=== PATIENT | male | born 1995 | race Caucasian/White ===

== ENCOUNTER 2018-12-07 07:54 | Emergency (ER) | payer MEDICAID ==
[~2018-12-07] VITALS: Ht 177.8 cm; Wt 59.5 kg
--- NOTE | 2018-12-07 08:29 | NUR ---
PT CURRENTLY BEING TREATED INPATIENT AT [facility] FOR SI, DENIES CURRENT THOUGHTS OR PLAN BUT IS SCREENED BEING MODERATE HYDRAULIC SPINNER DUE TO THOUGHTS IN LAST 3 MONTHS. 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 ORDER ENTERED BY PROVIDER FOR NO PRECAUTIONS. PT IN ROOM BY NURSES/DOCTORS STATION, ABLE TO VISUALIZE PT FROM DESK.
[2018-12-07 08:35] LABS: BASOPHILS # (AUTO) 0.03 x10^3/uL (0-0.1); BASOPHILS % (AUTO) 1 % (0-1); EOSINOPHILS % (AUTO) 2 % (1-7); LYMPHOCYTES # (AUTO) 2.53 x10^3/uL (1-3.4); LYMPHOCYTES % (AUTO) 41 % (22-44); MD NO; MEAN CORPUSCULAR HEMOGLOBIN 31.5 pg (27.5-34.5); MEAN CORPUSCULAR HGB CONC 34.2 g/dL (33.2-36.2); MEAN CORPUSCULAR VOLUME 92.2 fL (81-97); MEAN PLATELET VOLUME 7.8 fL (7.4-10.4); MONOCYTES # (AUTO) 0.51 x10^3/uL (0.2-0.8); MONOCYTES % (AUTO) 8 % (2-9); NEUTROPHILS # (AUTO) 3.06 x10^3/uL (1.8-6.8); NEUTROPHILS % (AUTO) 49 % (42-75); PLATELET COUNT 196 x10^3/uL (130-400); RED BLOOD COUNT 5.57 x10^6/uL (4.38-5.82); RED CELL DISTRIBUTION WIDTH 13.5 % (9.4-14.8)
--- NOTE | 2018-12-07 08:46 | NUR ---
PT SLEEPING IN [facility], NO NEEDS AT THIS TIME. CALL [facility] WITHIN REACH
[2018-12-07 08:50] LABS: ALBUMIN 3.8 g/dL (3.4-5.0); ANION GAP 5 mmol/L (5-15); CALCIUM 8.9 mg/dL (8.5-10.1); CHLORIDE 107 mmol/L (98-107); CREATININE 1.05 mg/dL (0.7-1.3)
--- NOTE | 2018-12-07 09:24 | NUR ---
I AM ASSUMING CARE OF THIS PATIENT FROM [facility] (YARELY) AT THIS TIME. SBAR REPORT WAS EXCHANGED AT THE BEDSIDE.
[2018-12-07 09:40] VITALS: BP 105/58
[2019-01-03] MEDS ORDERED: [UNRECOGNIZED DRUG - REMARK] PO (14:59)
[2019-01-03] MEDS ORDERED: FLUO10CA7 PO (14:59)
== END 2018-12-07 10:01 | disposition home or self-care (01) ==
LOC: ED 09:00
DX: R56.9 Unspecified convulsions (principal)
CPT/HCPCS: 36415; 70450; 80048; 82040; 85025; 93005; 99284

== ENCOUNTER 2019-03-01 01:27 | Emergency (ER) | payer MEDICAID ==
[~2019-03-01] VITALS: Ht 177.8 cm; Wt 60.0 kg
[~2019-03-01 01:27] MED LIST: FLUO10CA7 PO; [UNRECOGNIZED DRUG - REMARK] PO
[2019-03-01 01:30] VITALS: BP 132/84
[2019-03-01] MEDS ORDERED: FLUOXETINE 10 MG CAP ONE (01:46)
[2019-03-01] MEDS ORDERED: FLUOXETINE 10 MG CAP PO ONE (02:00)
== END 2019-03-01 02:04 | disposition home or self-care (01) ==
LOC: ED 01:55
DX: F32.9 Major depressive disorder, single episode, unspecified (principal); R45.851 Suicidal ideations; Z76.0 Encounter for issue of repeat prescription
CPT/HCPCS: 99283

== ENCOUNTER 2019-03-30 21:39 | Emergency (ER) | payer MEDICAID ==
[~2019-03-30] VITALS: Ht 175.3 cm; Wt 72.0 kg
[2019-03-30 21:56] VITALS: BP 118/58
[2019-03-30 22:01] LABS: BASOPHILS # (AUTO) 0.02 x10^3/uL (0-0.1); BASOPHILS % (AUTO) 0 % (0-1); EOSINOPHILS # (AUTO) 0.05 x10^3/uL (0-0.4); EOSINOPHILS % (AUTO) 1 % (1-7); LYMPHOCYTES # (AUTO) 1.91 x10^3/uL (1-3.4); LYMPHOCYTES % (AUTO) 27 % (22-44); MD NO; MEAN CORPUSCULAR HEMOGLOBIN 31.4 pg (27.5-34.5); MEAN CORPUSCULAR HGB CONC 34.2 g/dL (33.2-36.2); MEAN CORPUSCULAR VOLUME 91.9 fL (81-97); MEAN PLATELET VOLUME 8.1 fL (7.4-10.4); MONOCYTES # (AUTO) 0.71 x10^3/uL (0.2-0.8); MONOCYTES % (AUTO) 10 % (2-9); NEUTROPHILS # (AUTO) 4.52 x10^3/uL (1.8-6.8); NEUTROPHILS % (AUTO) 63 % (42-75); PLATELET COUNT 207 x10^3/uL (130-400); RED BLOOD COUNT 5.54 x10^6/uL (4.38-5.82); RED CELL DISTRIBUTION WIDTH 13.6 % (9.4-14.8)
[2019-03-30] MEDS ORDERED: DIVA-59 PO (22:03)
--- NOTE | 2019-03-30 22:04 | NUR ---
THIS IS A 23 YO MALE BIB [facility] FOR SI COMMENTS MADE AT [facility]. PATIENT STATES HE HAS FELT SUICIDAL FOR THE PAST COUPLE DAYS, BUT WORSENING TODAY, STATES "MY PLAN WAS TO STRANGLE MYSELF". PT HAS HX PTSD, ANXIETY/DEPRESSION, ADHD, AND SEIZURES, AND "POSSIBLE AUSTISM, BUT I HAVEN'T DONE ANY TESTING". PATIENT CALM AND COOPERATIVE, UNDRESSED AND PUT HOSPITAL GOWN ON. 2 BELONGINGS BAGS FULL WITH PATIENT'S BELONGINGS AND PLACED IN LOCKED STORAGE. VSS, CHELSEY, SITTER AT DOOR. UA COLLECTED AND SENT TO LAB.
[2019-03-30 22:10] LABS: ALBUMIN 4.2 g/dL (3.4-5.0); ANION GAP 5 mmol/L (5-15); CALCIUM 9.2 mg/dL (8.5-10.1); CHLORIDE 103 mmol/L (98-107); CREATININE 1.06 mg/dL (0.7-1.3)
[2019-03-30 22:14] LABS: SALICYLATE LEVEL < 1.7 mg/dL (2.8-20.0)
[2019-03-30] MEDS ORDERED: DEXAMETHASONE 4 MG TABLET ONE (22:19)
[2019-03-30 22:22] LABS: AMPHETAMINE SCREEN, URINE Negative (Negative); BARBITURATE SCREEN, URINE Negative (Negative); BENZODIAZEPINE SCREEN, URINE Negative (Negative); CANNABINOID SCREEN, URINE Negative (Negative); COCAINE SCREEN, URINE Negative (Negative); METHADONE SCREEN, URINE Negative (Negative); OPIATE SCREEN, URINE Negative (Negative)
--- NOTE | 2019-03-30 23:06 | NUR ---
PATIENT RESTING ON GURNEY, RESPIRATIONS EVEN AND UNLABORED, NAD. SITTER AT DOOR.
--- NOTE | 2019-03-30 23:47 | NUR ---
PATIENT RESTING ON GURNEY, RESPIRATIONS EVEN AND UNLABORED, NAD. SITTER AT DOOR.
--- NOTE | 2019-03-31 00:19 | NUR ---
REPORT GIVEN TO YARELY BRIDGES OF [facility]
--- NOTE | 2019-03-31 00:29 | NUR ---
PATIENT TRANSFERRED TO [facility] IN WHEELCHAIR WITH TWO TECHS WITH 2 OUT OF 2 BELONGINGS BAGS.
== END 2019-03-31 00:31 ==
LOC: ED 23:13
DX: R45.851 Suicidal ideations (principal); F32.9 Major depressive disorder, single episode, unspecified; G40.909 Epilepsy, unspecified, not intractable, without status epilepticus
CPT/HCPCS: 36415; 80048; 80307; 82040; 85025; 99285

== ENCOUNTER 2019-03-31 00:12 | Inpatient (IN) | payer MEDICAID ==
[~2019-03-31] VITALS: Ht 175.3 cm; Wt 69.6 kg
[~2019-03-31 00:12] MED LIST changes: +DIVA-59 PO
[2019-03-31] MEDS ORDERED: POLYETHYLENE GLYCOL 17 GM PACKET PO PRN (00:30)
[2019-03-31] MEDS ORDERED: ACETAMINOPHEN 325 MG TABLET PO PRN (00:30)
[2019-03-31] MEDS ORDERED: DOCUSATE 100 MG CAPSULE PO PRN (00:30)
[2019-03-31] MEDS ORDERED: BISACODYL 10 MG SUPP PR PRN (00:30)
[2019-03-31 00:49] VITALS: BP 105/68
[2019-03-31 01:15] VITALS: BP 105/68
[2019-03-31 01:52] LABS: MICROSCOPIC NOT IND
[2019-03-31 01:55] LABS: CULTURE INDICATED? NO
[2019-03-31] MEDS ORDERED: FLU VACC QS2019-20 36MOS UP/PF 0.5 ML IM-VACC ONE (03:00)
[2019-03-31 03:36] LABS: ALANINE AMINOTRANSFERASE 30 U/L (12-78); ALBUMIN 4.3 g/dL (3.4-5.0); ANION GAP 7 mmol/L (5-15); CALCIUM 9.3 mg/dL (8.5-10.1); CHLORIDE 103 mmol/L (98-107); CREATININE 1.09 mg/dL (0.7-1.3)
[2019-03-31 03:39] LABS: ALKALINE PHOSPHATASE 85 U/L (45-117); BILIRUBIN,TOTAL 0.3 mg/dL (0.2-1.0); TOTAL PROTEIN 7.8 g/dL (6.4-8.2)
[2019-03-31 07:12] VITALS: BP 100/62
[2019-03-31 12:47] LABS: CHOL/HDL RATIO 4.5; FREE T4 (FREE THYROXINE) 0.61 ng/dL (0.76-1.46); LDL/HDL RATIO 2.6 (0.5-3.0)
[2019-03-31] MEDS: FLUOXETINE HCL 20 MG CAPSULE PO SCH (16:38)
[2019-03-31 19:22] VITALS: BP 110/70
[2019-03-31] MEDS: DIVALPROEX 500 MG TABLET.DR PO SCH (20:05)
[2019-04-01 07:15] VITALS: BP 106/64
[2019-04-01] MEDS: FLUOXETINE HCL 20 MG CAPSULE PO SCH (08:20)
[2019-04-01 19:43] VITALS: BP 96/61
[2019-04-01] MEDS: DIVALPROEX 500 MG TABLET.DR PO SCH (20:11)
[2019-04-01] MEDS ORDERED: TRAZODONE 100MG TABLET ONE (20:15)
[2019-04-02 07:25] VITALS: BP 103/60
[2019-04-02] MEDS: FLUOXETINE HCL 20 MG CAPSULE PO SCH (08:26)
[2019-04-02 19:50] VITALS: BP 94/55
[2019-04-02] MEDS: DIVALPROEX 500 MG TABLET.DR PO SCH (20:28)
[2019-04-03 07:34] VITALS: BP 102/60
[2019-04-03] MEDS: FLUOXETINE HCL 20 MG CAPSULE PO SCH (08:22)
[2019-04-03 19:15] VITALS: BP 114/64
[2019-04-03] MEDS: DIVALPROEX 500 MG TABLET.DR PO SCH (20:04)
[2019-04-04 07:05] VITALS: BP 101/58
[2019-04-04] MEDS: FLUOXETINE HCL 20 MG CAPSULE PO SCH (09:10)
[2019-04-04] MEDS ORDERED: DIVA-61 PO (16:13)
[2019-04-04] MEDS ORDERED: FLUO20CA8 PO (16:13)
[2019-04-04 19:15] VITALS: BP 120/68
[2019-04-04] MEDS: DIVALPROEX 500 MG TABLET.DR PO SCH (20:15)
[2019-04-05 07:38] VITALS: BP 94/52
[2019-04-05] MEDS: FLUOXETINE HCL 20 MG CAPSULE PO SCH (08:17)
== END 2019-04-05 09:06 | disposition home or self-care (01) | DRG 885 ==
LOC: 3E 00:31
PROVIDERS: ADMIT Psychiatry & Neurology Psychosomatic Medicine; ATTEND Psychiatry & Neurology Psychosomatic Medicine
DX: F33.2 Major depressive disorder, recurrent severe without psychotic features (principal); R45.851 Suicidal ideations; Z79.899 Other long term (current) drug therapy; F43.10 Post-traumatic stress disorder, unspecified
CPT/HCPCS: 36415; 71045; 80053; 80061; 81003; 84439; 84443; 90686; 93005

== ENCOUNTER 2019-04-22 09:57 | Emergency (ER) | payer MEDICAID ==
[~2019-04-22] VITALS: Ht 177.8 cm; Wt 59.5 kg
[~2019-04-22 09:57] MED LIST changes: +DIVA-61 PO; +FLUO20CA8 PO
[2019-04-22 10:01] VITALS: BP 117/73
--- NOTE | 2019-04-22 10:16 | NUR ---
pt BIB [facility] from [facility]. pt attempted SI with a gorcery bag/stranglation. pt chagned into a hospital gown. Provider at bedside. All personal belongs bag in 1 of 1 bags. Legal hold intiated. pt verbalized understanding of current POC.
[2019-04-22 10:33] LABS: BASOPHILS # (AUTO) 0.01 x10^3/uL (0-0.1); BASOPHILS % (AUTO) 0 % (0-1); EOSINOPHILS # (AUTO) 0.06 x10^3/uL (0-0.4); EOSINOPHILS % (AUTO) 1 % (1-7); LYMPHOCYTES # (AUTO) 1.95 x10^3/uL (1-3.4); LYMPHOCYTES % (AUTO) 35 % (22-44); MD NO; MEAN CORPUSCULAR HEMOGLOBIN 31.8 pg (27.5-34.5); MEAN CORPUSCULAR HGB CONC 34.1 g/dL (33.2-36.2); MEAN CORPUSCULAR VOLUME 93.4 fL (81-97); MEAN PLATELET VOLUME 8.3 fL (7.4-10.4); MONOCYTES # (AUTO) 0.64 x10^3/uL (0.2-0.8); MONOCYTES % (AUTO) 11 % (2-9); NEUTROPHILS # (AUTO) 2.99 x10^3/uL (1.8-6.8); NEUTROPHILS % (AUTO) 53 % (42-75); PLATELET COUNT 213 x10^3/uL (130-400); RED BLOOD COUNT 5.45 x10^6/uL (4.38-5.82); RED CELL DISTRIBUTION WIDTH 13.8 % (9.4-14.8)
--- NOTE | 2019-04-22 10:35 | NUR ---
MEAL TRAY ORDERED AT THIS TIME.
--- NOTE | 2019-04-22 10:41 | NUR ---
meal tray provided at this time.
[2019-04-22 10:42] LABS: ALBUMIN 3.8 g/dL (3.4-5.0); ANION GAP 7 mmol/L (5-15); CALCIUM 8.6 mg/dL (8.5-10.1); CHLORIDE 106 mmol/L (98-107)
[2019-04-22 10:44] LABS: CREATININE 1.16 mg/dL (0.7-1.3); SALICYLATE LEVEL < 1.7 mg/dL (2.8-20.0)
--- NOTE | 2019-04-22 10:51 | NUR ---
pt moved to room 2. pt amb to room 2 with steady gait.
--- NOTE | 2019-04-22 11:06 | NUR ---
REPORT FROM ANKIT PRITCHETT PATIENT MOVED TO ER ROOM 2 SITTER WITHIN DIRECT EYELINE ROOM SECURED WITH PSYCHIATRIC PRECAUTIONS
--- NOTE | 2019-04-22 11:08 | NUR ---
PATIENT DENIES SUICIDE IDEATION AT THIS TIME. REPORTS "I FREAKED OUT THIS AM. I THINK IT WAS BECAUSE I HAVN'T TAKEN MY DEPRESSION MEDICINES IN A FEW WEEK BECAUSE MY WORK SCHEDULE DOES NOT MATCH WITH WHEN THE [facility] PASSES MEDS (THEY ONLY PASS MEDS AT 7AM AND 7PM AND I WORK FROM 6PM TO 430AM) REMINDED OF NEED FOR URINE SAMPLE RHIANNON-PROVIDED WITH PO FLUIDS TO EXPEDITE
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
[2019-04-22 12:24] LABS: AMPHETAMINE SCREEN, URINE Negative (Negative); BARBITURATE SCREEN, URINE Negative (Negative); BENZODIAZEPINE SCREEN, URINE Negative (Negative); CANNABINOID SCREEN, URINE Negative (Negative); COCAINE SCREEN, URINE Negative (Negative); METHADONE SCREEN, URINE Negative (Negative); OPIATE SCREEN, URINE Negative (Negative)
[2019-04-26] MEDS ORDERED: FLUO20CA8 PO (16:00)
== END 2019-04-22 15:28 ==
LOC: ED 10:32
DX: T14.91XA Suicide attempt, initial encounter (principal); F32.9 Major depressive disorder, single episode, unspecified; Z91.14 Patient's other noncompliance with medication regimen; X83.8XXA Intentional self-harm by other specified means, initial encounter; Y93.89 Activity, other specified; Y92.89 Other specified places as the place of occurrence of the external cause; Y99.8 Other external cause status
CPT/HCPCS: 36415; 80048; 80307; 82040; 85025; 99283; 99284

== ENCOUNTER 2019-04-22 14:48 | Inpatient (IN) | payer MEDICAID ==
[~2019-04-22] VITALS: Ht 177.8 cm; Wt 46.9 kg
[~2019-04-22 14:48] MED LIST changes: +FLUO10CA14 PO; -FLUO10CA7 PO; +FLUO20CA23 PO; -FLUO20CA8 PO
[2019-04-22] MEDS ORDERED: DOCUSATE 100 MG CAPSULE PO PRN ×2 (15:00→18:30)
[2019-04-22] MEDS ORDERED: ACETAMINOPHEN 325 MG TABLET PO PRN ×2 (15:00→18:30)
[2019-04-22] MEDS ORDERED: ONDANSETRON ODT 4 MG PO PRN ×2 (15:00→18:30)
[2019-04-22] MEDS ORDERED: POLYETHYLENE GLYCOL 17 GM PACKET PO PRN ×2 (15:00→18:30)
[2019-04-22] MEDS ORDERED: BISACODYL 10 MG SUPP PR PRN ×2 (15:00→18:30)
[2019-04-22] MEDS ORDERED: PLEASE ENTER HEIGHT AND WEIGHT MC SCH (16:00)
[2019-04-22 16:17] VITALS: BP 99/64
[2019-04-22 16:53] VITALS: BP 99/64
[2019-04-22] MEDS: DIVALPROEX 500 MG TABLET.DR PO SCH (20:40)
[2019-04-22] MEDS ORDERED: DIVALPROEX 500 MG TABLET.DR PO SCH (21:00)
[2019-04-22 21:31] VITALS: BP 106/62
[2019-04-23 07:33] VITALS: BP 106/66
[2019-04-23] MEDS: FLUOXETINE HCL 20 MG CAPSULE PO SCH (08:38)
[2019-04-23] MEDS: DIVALPROEX 250 MG TABLET.DR PO SCH (08:38)
[2019-04-23] MEDS ORDERED: FLUOXETINE HCL 20 MG CAPSULE PO SCH (09:00)
[2019-04-23] MEDS ORDERED: DIVALPROEX 250 MG TABLET.DR PO SCH (09:00)
[2019-04-23 19:20] VITALS: BP 112/68
[2019-04-23] MEDS: DIVALPROEX 500 MG TABLET.DR PO SCH (20:19)
[2019-04-24 07:08] VITALS: BP 100/62
[2019-04-24] MEDS: FLUOXETINE HCL 20 MG CAPSULE PO SCH (09:20)
[2019-04-24] MEDS: DIVALPROEX 250 MG TABLET.DR PO SCH (09:20)
[2019-04-24 20:09] VITALS: BP 112/70
[2019-04-24] MEDS: DIVALPROEX 500 MG TABLET.DR PO SCH (20:17)
[2019-04-25 07:20] VITALS: BP 97/63
[2019-04-25] MEDS: DIVALPROEX 250 MG TABLET.DR PO SCH (08:52)
[2019-04-25] MEDS: FLUOXETINE HCL 20 MG CAPSULE PO SCH (08:52)
[2019-04-25 19:25] VITALS: BP 124/73
[2019-04-25] MEDS: DIVALPROEX 500 MG TABLET.DR PO SCH (20:15)
[2019-04-26 07:38] VITALS: BP 104/70
[2019-04-26] MEDS: DIVALPROEX 250 MG TABLET.DR PO SCH (08:40)
[2019-04-26] MEDS: FLUOXETINE HCL 20 MG CAPSULE PO SCH (08:40)
[2019-04-26] MEDS ORDERED: FLUO20CA23 PO (16:00)
[2019-04-26] MEDS ORDERED: DIVA-59 PO (16:00)
[2019-04-26 20:07] VITALS: BP 103/66
[2019-04-26] MEDS: DIVALPROEX 500 MG TABLET.DR PO SCH (20:28)
[2019-04-27 07:11] VITALS: BP 109/70
[2019-04-27] MEDS: FLUOXETINE HCL 20 MG CAPSULE PO SCH (08:05)
[2019-04-27] MEDS: DIVALPROEX 250 MG TABLET.DR PO SCH (08:05)
== END 2019-04-27 08:35 | disposition home or self-care (01) | DRG 885 ==
LOC: 3E 15:50
PROVIDERS: ADMIT Psychiatry & Neurology Psychosomatic Medicine; ATTEND Psychiatry & Neurology Psychosomatic Medicine
DX: F33.2 Major depressive disorder, recurrent severe without psychotic features (principal); R45.851 Suicidal ideations; F43.10 Post-traumatic stress disorder, unspecified; Z79.899 Other long term (current) drug therapy; Z91.14 Patient's other noncompliance with medication regimen
CPT/HCPCS: 93005